=== PATIENT | male | born 1950 | race Caucasian/White ===

== ENCOUNTER 2025-04-06 04:21 | Emergency (ER) | payer MEDICARE ==
[2025-04-06 05:19] LABS: Hematocrit 51.3 % (42.0-52.0); Hemoglobin 16.4 g/dL (14.0-18.0); MDiff Complete? YES; Mean Corpuscular Hemoglobin 29.2 pg (27.0-31.0); Mean Corpuscular Volume 91.2 fl (78.0-98.0); Platelet Count 164 10x3/uL (130-400); Red Blood Cell (RBC) Count 5.63 mill/uL (4.70-6.10); White Blood Cell (WBC) Count 6.3 10x3/uL (4.8-10.8)
[2025-04-06 05:35] LABS: ALT (SGPT) 22 U/L (Less than 45); AST (SGOT) 25 U/L (11-34); Albumin 3.6 g/dL (3.1-4.5); Alkaline Phosphatase 118 U/L (40-110); Anion Gap 14 mmol/L (10-20); BUN (Urea Nitrogen) 19 mg/dL (8.4-25.7); Bilirubin, Total 0.6 mg/dL (0.3-1.2); Calc. Creatinine Clearance 0 mL/min (70-130); Calcium 9.2 mg/dL (7.8-10.44); Carbon Dioxide 23 mmol/L (23-31); Chloride 108 mmol/L (98-107); Globulin 3.6 g/dL (2.4-3.5); Glucose 93 mg/dL (83-110); Potassium 4.3 mmol/L (3.5-5.1); Sodium 141 mmol/L (136-145)
[2025-04-06] MEDS ORDERED: Cephalexin 500 MG CAP ONE (05:44)
== END 2025-04-06 06:10 | disposition short-term general hospital (02) ==
LOC: MADERS 04:21
DX: L03.115 Cellulitis of right lower limb (principal); I12.9 Hypertensive chronic kidney disease with stage 1 through stage 4 chronic kidney disease, or unspecified chronic kidney disease; N18.30 Chronic kidney disease, stage 3 unspecified
CPT/HCPCS: 36415; 80053; 83880; 85025; 99284

== ENCOUNTER 2025-04-16 03:07 | Emergency (ER) | payer MEDICARE | END 2025-04-16 04:03 | disposition home or self-care (01) | LOC: MADERS 03:07 | DX: L03.115 Cellulitis of right lower limb (principal); I89.0 Lymphedema, not elsewhere classified | CPT/HCPCS: 99283 ==